=== PATIENT | male | born 1950 | race Hispanic/Latino ===

== ENCOUNTER 2019-05-14 11:39 | Inpatient (IN) | payer MEDICARE ==
[~2019-05-14] VITALS: Ht 162.6 cm; Wt 74.8 kg
--- OUTSIDE RECORDS SUMMARY | 2019-05-14 11:42 | XMS REPORT ---
Author Author [facility] Address Unknown Phone Unavailable Care Team Providers Care Vp Mobile Products Name Role Phone FIONA LATOSHA Unavailable Unavailable Problems This patient has no known problems. Allergies, Adverse Reactions, Alerts This patient has no known allergies or adverse reactions. Medications This patient has no known medications. Encounters Start Date/Time End Date/Time Encounter Type Admission Type Attending [facility] Care Facility Care Department Encounter ID 2016-05-02 10:03:00 2016-05-02 10:03:00 Outpatient 3 LATOSHA JAIMES [facility] [id number] Results Test Description Test Time Test Comments Text Results Atomic Results Result Comments WHOLE BLOOD GLUCOSE 2016-05-02 16:39:00 WHOLE BLOOD GLUCOSE (test code=POC GLU) 91 mg/dL 70-99 Fasting glucose normal <100 MG/DL- Citizen Of [place] [facility] recommendation WHOLE BLOOD [id number] 10:57:00* Test Item Value Reference Range Comments WHOLE BLOOD GLUCOSE (test code=POC GLU) 261 mg/dL 70-99 Fasting glucose normal <100 MG/DL- Citizen [facility] [place] [facility] recommendation
--- OUTSIDE RECORDS SUMMARY | 2019-05-14 11:42 | XMS REPORT | Continuity of Care Document ---
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 Medications No known medications. Problems No problem information available. Procedures Procedure Date Performed Status Minor level new patient office visit January 28, 2019 completed X-ray of wrist, three or more views January 28, 2019 completed Relevant Diagnostic Tests and/or Laboratory Data No known relevant diagnostic tests and/or laboratory data. Health Concerns Health Concerns may be documented in an alternate section. Advance Directives Advance Directive Response Recorded Date/Time Does the Patient have an Advance Directive? No January 28, 2019 4:32pm Encounters Encounter Location(s) Arrival/Admit Date Discharge[facility]Depart Date [facility]) [facility] January 28, 2019 4:33pm February 14, 2019 11:59pm LINDSEY PROCTOR MD Assessments No Assessments Information Available Functional Status No Functional Status information available Goals Goals may be documented in an alternate section. Immunizations No Immunization Information Available Mental Status No Mental Status Information Available Medical Equipment No Medical Equipment Information available Insurance Providers Guarantor Joy Wilkins Address [address] [facility] [address] Contact Info. Home Phone: Payer Policy Id Coverage Id Subscriber's Name Subscriber Id Effective Date Expiration Date Medicare [id number] Joy Wilkins [id number] 2014 Social History Assigned Sex Male Vital Signs No vital signs result information available.
[2019-05-14] MEDS ORDERED: VANCOMYCIN 1GM/NS 250 ML 250 ML IV STA (12:30)
[2019-05-14] MEDS ORDERED: PIPER-TAZ 3.375 GM 50 ML IV STA (12:30)
[2019-05-14] MEDS ORDERED: SODIUM CHLORIDE 0.9% 1000ML 1,000 ML IV SCH (12:36)
[2019-05-14] MEDS ORDERED: ONDANSETRON HCL INJ 2MG/ML 2ML 2 MG/ML VIAL IV PRN ×2 (12:45→23:30)
[2019-05-14 13:00] LABS: BASOPHILS % 0.3 % (0.0-1.0); EOSINOPHILS # (AUTO) 0.2 (0.0-0.4); EOSINOPHILS % 1.6 % (0.0-6.0); HEMATOCRIT 35.8 % (38.2-49.6); HEMOGLOBIN 11.3 g/dL (14.0-18.0); LYMPHOCYTES # (AUTO) 1.5 (1.0-3.2); LYMPHOCYTES % 14.8 % (18.0-39.1); MEAN CORPUSCULAR HEMOGLOBIN 25.4 pg (28-32); MEAN CORPUSCULAR HGB CONC 31.6 g/dL (31-35); MEAN CORPUSCULAR VOLUME 80.4 fL (81-99); MONOCYTES # (AUTO) 0.6 (0.2-0.8); MONOCYTES % 5.6 % (4.4-11.3); NEUTROPHILS # (AUTO) 7.7 (2.1-6.9); NEUTROPHILS % 76.6 % (38.7-80.0); PLATELET COUNT 437 x10e3/uL (140-360); RED BLOOD COUNT 4.45 x10e6/uL (4.3-5.7); RED CELL DISTRIBUTION WIDTH 15.3 % (11.7-14.4)
[2019-05-14 13:18] LABS: ALANINE AMINOTRANSFERASE 62 IU/L (0-55); ALBUMIN 2.6 g/dL (3.5-5.0); ALBUMIN/GLOBULIN RATIO 0.5 (0.8-2.0); ALKALINE PHOSPHATASE 129 IU/L (40-150); ANION GAP 12.7 mmol/L (8-16); BLOOD UREA NITROGEN 15 mg/dL (7-26); BUN/CREATININE RATIO 15 (6-25); CALCIUM 9.3 mg/dL (8.4-10.2); CARBON DIOXIDE 22 mmol/L (22-29); CHLORIDE 104 mmol/L (98-107); CREATINE KINASE 46 IU/L (30-200); CREATININE, SERUM 0.99 mg/dL (0.72-1.25); EST GLOMERULAR FILTRATION RATE > 60 ML/MIN (60-); GLUCOSE 218 mg/dL (74-118); POTASSIUM 3.7 mmol/L (3.5-5.1); SODIUM 135 mmol/L (136-145)
[2019-05-14] MEDS ORDERED: METOPROLOL SUCC50 MG PO (13:39)
[2019-05-14] MEDS ORDERED: PIOGLITAZONE HC45 MG PO (13:40)
[2019-05-14] MEDS ORDERED: ASPIR 8181 MG PO (13:40)
[2019-05-14] MEDS ORDERED: LISINOPRIL10 MG PO (13:41)
[2019-05-14] MEDS ORDERED: METFORMIN HCL500 MG PO (13:41)
[2019-05-14] MEDS ORDERED: FARXIGA10 MG PO (13:44)
[2019-05-14] MEDS ORDERED: CEPHALEXIN500 MG PO (13:44)
[2019-05-14] MEDS ORDERED: CLOPIDOGREL75 MG PO (13:45)
[2019-05-14] MEDS ORDERED: FLOMAX0.4 MG PO (13:46)
[2019-05-14] MEDS ORDERED: CRESTOR10 MG PO (13:46)
[2019-05-14] MEDS ORDERED: HUMULIN 70100 UNIT/1 SC/PO (13:47)
--- NOTE | 2019-05-14 14:08 | Diagnostic Imaging Report ---
TECHNIQUE: Frontal, oblique, and lateral views of the left foot. INDICATION: 68-year-old man with foot infection. COMPARISON: None. FINDINGS: Osseous erosion and increased lucency in the lateral aspect of the first distal phalanx. No acute fractures or dislocations. Joint spaces are within normal limits. Plantar calcaneal spur. Dorsal calcaneal enthesophyte. Vascular calcifications in the visualized soft tissues. IMPRESSION: Suspected osteomyelitis involving the left first distal phalanx. Signed by: Brooklynn Dodd MD on 05/14/2019 2:05 PM
--- NOTE | 2019-05-14 14:20 | NUR ---
PT TO THE FLOOR FROM ER. VITALS WNL. PT DENIES NEEDS AT THIS TIME.
[2019-05-14 15:30] VITALS: BP 159/69
[2019-05-14] MEDS: VANCOMYCIN 1GM/NS 250 ML 250 ML IV SCH (15:53)
[2019-05-14] MEDS: SODIUM CHLORIDE 0.9% 1000ML 1,000 ML IV SCH ×2 (16:01→22:57)
[2019-05-14 16:52] VITALS: BP 159/69
[2019-05-14] MEDS: ASPIRIN 81 MG CHEW TAB PO SCH (17:15)
--- NOTE | 2019-05-14 17:20 | Consultation ---
DATE OF CONSULTATION: REASON FOR CONSULTATION: Infection of the foot. HISTORY OF PRESENT ILLNESS: This patient, who is a very pleasant 68-year-old male, history of diabetes mellitus, history of neuropathy, who has been having infection with his foot for some time. He has been followed by Dr. Merrill, but the last few days, it has been getting progressively worse with redness and swelling. The left foot is getting progressively worse. Gangrenous changes noted. The patient came to the emergency room. He has been taking oral antibiotic without improvement. PAST MEDICAL HISTORY: Diabetes mellitus, neuropathy, and hypertension. PAST SURGICAL HISTORY: Denies. ALLERGIES: NKA. SOCIAL HISTORY: There is no smoking, drug abuse, or alcohol abuse. FAMILY HISTORY: Diabetes mellitus. REVIEW OF SYSTEMS: HEENT: Negative. PULMONARY: Negative. CARDIAC: Negative. GI: Negative. NEURO: No seizure activity. SKIN: There is no rash. HOME MEDICATIONS: He is on aspirin, cephalexin, lisinopril, metformin, and pravastatin. LABORATORY DATA: White count is 10.05 and hemoglobin 11.3. Sodium 135, potassium 3.7, and creatinine 0.99. His x-ray of the foot showed suspected osteomyelitis of the left 1st metatarsal. PHYSICAL EXAMINATION: GENERAL: He is currently alert and oriented. Does not seem to be in acute distress. VITAL SIGNS: Stable, currently afebrile. HEENT: He is not icteric. NECK: Supple. CHEST: Clear bilateral. HEART: S1 and S2. No S3, S4, or murmur. ABDOMEN: Soft. Bowel sounds present. No tenderness. EXTREMITIES: No edema. At the left foot, there is redness. There is swelling mainly around the side of the 1st, 2nd, and 3rd toe. At the 1st toe, there is some gangrenous tissue noted. The pulse is weak in the dorsalis pedis. IMPRESSION: Cellulitis and infection of the foot, concerned about gangrene, concerned about osteomyelitis. We will put on vancomycin and Zosyn. Vancomycin 1 g q.12. Obtain vancomycin trough. Zosyn 3.375 q.6 extended-release. Obtain sedimentation rate. Obtain C-reactive protein. Podiatry is consulted. Follow up CBC. Follow chemistry panel. We will follow up with vancomycin trough. Also, recommend vascular workup. Also, recommend an MRI. Discussed with the patient. Discussed with his daughter. The patient was seen in the emergency room. We will follow with you. MD MIMI Delgado/AELXIS /[id number]
[2019-05-14] MEDS ORDERED: PIPER-TAZ 3.375 GM 50 ML IV SCH (18:00)
--- NOTE | 2019-05-14 18:15 | Consultation ---
DATE OF CONSULTATION: 05/14/2019 Cardiology Consultation REASON FOR CONSULTATION: Foot wound. HISTORY OF PRESENT ILLNESS: Mr. Wilkins is a pleasant 68-year-old man with history of type 2 diabetes mellitus, hypertension, and dyslipidemia, who presents via the emergency department with left foot wound and associated erythema. Wound has been present for several months and is worsening. He reports a remote history of peripheral arterial disease revascularization of the left lower extremity at least 3 years ago. He denies any known cardiac history. REVIEW OF SYSTEMS: A 12-system review is negative except for as noted above. PAST MEDICAL HISTORY: As per HPI. ALLERGIES: NO KNOWN DRUG ALLERGIES. SOCIAL HISTORY: Denies active smoking, alcohol, or drugs. PHYSICAL EXAMINATION: VITAL SIGNS: Temperature 97.9, heart rate 61, respiratory rate 18, blood pressure 115/61, and O2 saturation 97%. GENERAL: In no acute distress. Alert. NECK: No JVD. CHEST: Clear to auscultation. CARDIOVASCULAR: Regular rate and rhythm. Normal S1 and S2. No S3. No S4. No murmurs. ABDOMEN: Soft. Bowel sounds positive. EXTREMITIES: No cyanosis or clubbing. Has left foot medial aspect of forefoot and plantar aspect of distal forefoot wounds with associated erythema. Dorsalis pedis pulses and posterior tibial pulses are nonpalpable. Capillary refill is slightly diminished. MEDICATIONS: Reviewed. Vancomycin and Zosyn. STUDIES: Reviewed. Sodium 135, potassium 3.7, chloride 104, bicarbonate 22, BUN 15, creatinine 0.99, and glucose 218. White blood cells 10, hemoglobin 11.3, and platelets 437. AST 49, ALT 62, total bilirubin 0.3, and alkaline phosphatase 129. ASSESSMENT AND PLAN: 1. A 68-year-old man presents with peripheral arterial disease, left foot wound, critical limb ischemia, Franky-Rosales classification stage 6 with associated 1st left distal phalanx osteomyelitis based on abnormal foot x-rays. 2. Diabetes mellitus. 3. Hypertension. 4. Dyslipidemia. 5. Mild anemia. RECOMMEND: 1. Initiate aspirin 81 mg daily. 2. Check lipid panel and initiate statin therapy. Monitoring transaminases as they are borderline elevated. AST 49 and ALT 62. 3. Serial cardiac biomarkers negative. 4. Order arterial Doppler for procedure planning. 5. Plan for peripheral angiography and possible revascularization. We will schedule for procedure tomorrow a.m. was confirming labor and delivery nurse availability. Indications, alternatives, risks, and benefits have been discussed with the patient, who voices understanding and wishes to proceed. MD DARCI Alvarez/ALEXIS /[id number]
[2019-05-14 20:00] VITALS: BP 157/73
[2019-05-14] MEDS: PIPER-TAZ 3.375 GM 50 ML IV SCH (22:56)
[2019-05-14 22:58] VITALS: BP 157/73
[2019-05-14] MEDS ORDERED: TEMAZEPAM 15 MG CAP PO PRN (23:30)
[2019-05-14] MEDS ORDERED: DEXTROSE 50% SYRINGE 50 ML IV PRN ×2 (23:30)
[2019-05-14] MEDS ORDERED: HYDRALAZINE HCL 20 MG/ML VIAL IV PRN (23:30)
[2019-05-14] MEDS ORDERED: ENOXAPARIN SOD INJ 40 MG/0.4 ML SYR SC ONE (23:30)
[2019-05-15] VITALS (12 sets, daily range): BP systolic 141–160; BP diastolic 66–86
--- NOTE | 2019-05-15 02:13 | Consultation ---
DATE OF CONSULTATION: 05/14/2019 REASON FOR CONSULTATION: Pregangrenous changes to the left lower extremity with a grade 3 to possibly 4 ulceration, medial plantar aspect of the left first MPJ with the patient being an insulin-dependent diabetic. HISTORY OF PRESENT ILLNESS: This is a pleasant 68-year-old male, who is known to me, who was seen last [place] for an ulceration debridement of the plantar aspect left great toe. The patient relates that 2 days following the debridement, he started getting worse and actually left AMA at [facility] to be admitted to [facility] for IV antibiotics and local wound care here at this hospital. He is currently denying any history of fever, chills, nausea, or vomiting, was having some chills several days ago. PAST MEDICAL HISTORY: Remarkable for hypercholesteremia, insulin-dependent diabetes, peripheral arterial disease. PAST SURGICAL HISTORY: Remarkable for right great toe amputation 4-5 years ago, angioplasty and possible angiogram several years ago to the left lower extremity. ALLERGIES: THE PATIENT DENIES. SOCIAL HISTORY: He is a krqo-mljhw-emt-day smoker, stopped drinking several years ago. No recreational drug use. Lives with his . FAMILY HISTORY: Remarkable for diabetes. REVIEW OF SYSTEMS: CARDIAC: Denies any palpitations or arrhythmias. RESPIRATORY: Denies any shortness of breath or productive cough. GASTROINTESTINAL: Denies any diarrhea or constipation. GENITOURINARY: Denies any problems of voiding or hematuria. LABORATORY DATA: Noted. White blood cell count 10.06, hemoglobin 11.3 with a platelet count of 437. PHYSICAL EXAMINATION: VITAL SIGNS: Temp afebrile, pulse rate 62, respirations 20, blood pressure 159/69, and O2 saturation 97%. Podiatric physical examination reveals the following: VASCULATURE: Pedal pulses of both the DP and PT are diminished bilaterally. SKIN: Temperature warm and cool to touch, specifically distally to the left foot when compared to the right. NEUROLOGICAL: Reveals some loss of protective sensation when utilizing Barron-Rachelle 5.07 monofilament wire. MUSCULOSKELETAL: Reveals muscle mass to be asymmetrical. Some swelling noted to the left lower extremity compared to the right. There is hair present up to his ankle joint area. Skin temperature is warm to touch up to the ankle area with decreasing skin temperature as we get to the toes, but still warm. DERMATOLOGICAL: Grade 3 ulceration, medial plantar aspect of left first metatarsophalangeal joint measuring 2 cm to 2.5 cm in diameter with some pregangrenous changes and cyanosis noted to the forefoot aspect of left foot. IMAGING DATA: X-rays were evaluated. No gas in the tissue. Does have calcification of vessels. Questionable for possible osteo, possibly to the distal phalanx and first metatarsal head. ASSESSMENT: Osteomyelitis, grade 3 ulcer with peripheral arterial disease with diabetic neuropathy. PLAN: Sharp excisional debridement will be planned for tomorrow morning of the ulceration and deep cultures will be taken. Dr. Michaels will be evaluating the patient for possible angiogram and angioplasty. We will continue IV antibiotics such as vancomycin and Zosyn as per Dr. Michel. The patient understands no warrantees or guarantees can be given. We will try to salvage foot and leg, but no guarantees can be given secondary to his poor circulatory status. LEOLA Wan/ALEXIS /[id number]
[2019-05-15] MEDS: INSULIN LISPRO 100 UNIT/1 ML 3ML VIAL SQ SCH ×5 (02:35→20:00)
[2019-05-15] MEDS: INSULIN GLARGINE 100 UNITS/ML VIAL SQ SCH ×2 (02:35→20:00)
[2019-05-15] MEDS: SIMVASTATIN 20 MG TAB PO SCH ×2 (02:50→22:00)
[2019-05-15] MEDS: PIPER-TAZ 3.375 GM 50 ML IV SCH ×4 (02:50→21:57)
[2019-05-15] MEDS: METOPROLOL SUCCINATE 50 MG TAB XL PO SCH ×2 (02:50→22:01)
[2019-05-15] MEDS: VANCOMYCIN 1GM/NS 250 ML 250 ML IV SCH ×2 (04:06→15:30)
[2019-05-15 06:17] LABS: BASOPHILS % 0.3 % (0.0-1.0); EOSINOPHILS # (AUTO) 0.3 (0.0-0.4); EOSINOPHILS % 3.2 % (0.0-6.0); HEMATOCRIT 34.3 % (38.2-49.6); HEMOGLOBIN 10.6 g/dL (14.0-18.0); LYMPHOCYTES # (AUTO) 1.8 (1.0-3.2); MEAN CORPUSCULAR HEMOGLOBIN 24.8 pg (28-32); MEAN CORPUSCULAR HGB CONC 30.9 g/dL (31-35); MEAN CORPUSCULAR VOLUME 80.3 fL (81-99); MONOCYTES # (AUTO) 0.8 (0.2-0.8); MONOCYTES % 7.5 % (4.4-11.3); NEUTROPHILS % 70.3 % (38.7-80.0); PLATELET COUNT 420 x10e3/uL (140-360); RED BLOOD COUNT 4.27 x10e6/uL (4.3-5.7); RED CELL DISTRIBUTION WIDTH 15.3 % (11.7-14.4)
[2019-05-15 06:30] LABS: INR 1.18; PROTHROMBIN TIME 15.8 seconds (11.9-14.5)
[2019-05-15 06:31] LABS: PARTIAL THROMBOPLASTIN TIME 45.6 seconds (23.8-35.5)
[2019-05-15 06:41] LABS: ANION GAP 12.8 mmol/L (8-16); BLOOD UREA NITROGEN 12 mg/dL (7-26); BUN/CREATININE RATIO 15 (6-25); CALCIUM 9.2 mg/dL (8.4-10.2); CARBON DIOXIDE 21 mmol/L (22-29); CHLORIDE 108 mmol/L (98-107); CREATININE, SERUM 0.82 mg/dL (0.72-1.25); EST GLOMERULAR FILTRATION RATE > 60 ML/MIN (60-); GLUCOSE 141 mg/dL (74-118); POTASSIUM 3.8 mmol/L (3.5-5.1); SODIUM 138 mmol/L (136-145)
[2019-05-15] MEDS ORDERED: INSULIN REGULAR, HUMAN 100 UNIT/1 ML 3ML VIAL SQ SCH (07:30)
[2019-05-15] MEDS ORDERED: MIDAZOLAM HCL 2 MG/2 ML VIAL ONE (08:28)
[2019-05-15] MEDS ORDERED: FENTANYL CITRATE/PF 100MCG/2 ML INJ ONE (08:29)
[2019-05-15] MEDS ORDERED: LIDOCAINE HCL 2% LOCAL 20 ML VIAL ONE (08:30)
[2019-05-15] MEDS ORDERED: HEPARIN SOD/SOD CHLORIDE 2,000 ML ONE (08:30)
[2019-05-15] MEDS ORDERED: SODIUM CHLORIDE 0.9% 1000ML 0 ML ONE (08:31)
[2019-05-15] MEDS ORDERED: IOPAMIDOL 300MG/ML 100 ML INFUS..BTL IV ONE (08:31)
--- NOTE | 2019-05-15 08:40 | NUR ---
at bedside doing debridement
[2019-05-15] MEDS: MORPHINE SULFATE 2 MG/ML SYR 1ML IV PRN (08:50)
[2019-05-15] MEDS ORDERED: ATORVASTATIN 20 MG TAB PO SCH (09:00)
[2019-05-15] MEDS: SENNOSIDES 8.6 MG TAB PO SCH ×2 (09:00→16:38)
[2019-05-15] MEDS ORDERED: VERAPAMIL HCL 2.5 MG/ML 2 ML VIAL ONE (09:58)
[2019-05-15] MEDS ORDERED: SODIUM CHLORIDE 0.9% 1000ML 1,000 ML ONE (09:58)
--- NOTE | 2019-05-15 10:45 | NUR ---
Back from procedure. AAOX4 to time, person, place, situation. Respirations even and unlabored. Dressing to right groin clean, dry, and intact. Notified of bedrest orders. Voiced understanding.
[2019-05-15] MEDS: ASPIRIN 81 MG CHEW TAB PO SCH (11:51)
[2019-05-15] MEDS: ATORVASTATIN 40 MG TAB PO SCH (11:51)
[2019-05-15] MEDS ORDERED: GADOBENATE DIMEGLUMINE 1 ML IV ONE (14:34)
--- NOTE | 2019-05-15 15:20 | Progress Note ---
DATE: 05/15/2019 SUBJECTIVE: The patient at bedside accompanied by daughter, having some discomfort to the left lower extremity. Denies any history of fever, chills, nausea, or vomiting. OBJECTIVE: VITAL SIGNS: Afebrile, pulse rate 56, respirations 18, blood pressure 144/86, and O2 saturation 94%. LABORATORY DATA: Show white blood cell count 10.0, hemoglobin 10.6 with a platelet count of 420. Ulceration and cellulitis of the left foot are getting a little bit worse. Pedal pulses are diminished. Skin temperature warm and cool to touch, has a grade 3/4 ulceration plantar aspect 1st metatarsophalangeal joint measuring 2 to 2.5 cm in diameter with an ulceration, plantar aspect left great toe, 1 cm in diameter. ASSESSMENT: Diabetic neuropathy with a grade 4 ulcer and possible osteo. PLAN: Under no anesthesia secondary to his neuropathy, sharp excisional debridement of the ulcer was carried down to bone. Devitalized tissue sharply excised until some viable bleeding tissue was achieved. Deep cultures were taken for aerobic and anaerobic growth. We will start Santyl followed by diluted wet-to-dry Betadine to the ulceration site. Deep cultures were taken for aerobic and anaerobic growth. X-rays of the left foot will be taken three views. The patient is scheduled for angiogram, possible angioplasty per Dr. Michaels. We will continue to treat conservatively for now, try to salvage the foot. After the debridement the ulcer measured at least 2 x 4 cm in diameter, plantar aspect, 1st metatarsal head. LEOLA Wan/ALEXIS /[id number]
--- NOTE | 2019-05-15 16:02 | Diagnostic Imaging Report ---
EXAMINATION: FOOT LEFT COMPLETE INDICATION: Cellulitis COMPARISON: None FINDINGS: No acute fracture or dislocation. Focal osteopenia and mild cortical thinning at the lateral aspect of the great toe distal phalanx. Alignment appears anatomic. Mild scattered degenerative changes. Achilles enthesopathy and small plantar calcaneal spur. Mild plantar foot soft tissue swelling. Scattered atherosclerotic arterial calcifications. IMPRESSION: No acute osseous injury. Focal osteopenia and cortical thinning at the lateral aspect of the great toe distal phalanx, concerning for osteomyelitis. Plantar soft tissue thickening consistent with cellulitis. Signed by: Medardo Adams MD on 05/15/2019 4:00 PM
[2019-05-15] MEDS: TAMSULOSIN HCL 0.4 MG CAP PO SCH (16:38)
--- NOTE | 2019-05-15 18:36 | Operative Report ---
DATE OF PROCEDURE: 05/15/2019 SURGEON: Colton Soares MD STUDY: Peripheral angiography and intervention. PROCEDURE INDICATION: Critical limb ischemia with left foot wound and known remote history of PAD revascularization. PROCEDURE PERFORMED: 1. Abdominal aortogram. 2. Selective lower extremity angiography, bilateral. 3. Third-order catheter placement from right femoral artery to left femoral artery. 4. Additional third-order catheter placement from right femoral artery to left popliteal artery. 5. Additional third-order catheter placement from right femoral artery to left posterior tibial artery. 6. Additional third-order catheter placement from left femoral artery to left dorsalis pedis artery. 7. Right LABOR UNION BUSINESS REPRESENTATIVE attempt and aborted LABOR UNION BUSINESS REPRESENTATIVE. PROCEDURE COMPLICATIONS: None. ESTIMATED BLOOD LOSS: Less than 15 mL. PROCEDURE SUMMARY: After consent was obtained, the patient was prepped and draped in a sterile fashion. The right femoral site local infiltrated with 2% lidocaine with micropuncture kit. Access was obtained and a 6-Indonesian sheath was placed. A sheath was advanced over leading wire 6-Indonesian in size. An Omni Flush catheter was positioned in distal descending abdominal aorta and angiography was performed revealing patent renal arteries and luminal irregularities across the infrarenal aorta and iliac vessels as well as common femoral vessels. Additional selective angiography was performed to each of both lower extremities with catheter positioned in the right femoral artery, right external iliac artery, left popliteal artery, left anterior tibial artery, left posterior tibial artery, and left femoral artery. After initial imaging, it was decided to proceed with attended intervention to right posterior tibial artery with Roadrunner wire. The wire was advanced to the mid to distal segment of the right posterior tibial, however, in spite of this additional pictures to assess for residual outflow, the posterior tibial poor outflow was noted with predominantly only collaterals filling the distal segment without adequate reconstitution of posterior tibial and plantar arteries and plantar branches. It was therefore decided to abort further LABOR UNION BUSINESS REPRESENTATIVE attempts. Angio-Seal was deployed to the right common femoral artery at the end of the procedure. A selective angiography to the internal inguinal segment was significant for luminal irregularities to common femoral profunda femoris and SFA. The right popliteal artery distally has an area of 80% stenosis and the right posterior tibial was occluded proximally, seems to reconstitute to the mid segment. The right anterior tibial and peroneal artery are patent in the proximal to mid segment. Distal segment was not well visualized. The left jumxa-oia-insh vessels are significant for a right posterior tibial mid to distal occlusion 100% and the patent anterior tibial and peroneal artery on the left with the left dorsalis pedis artery area of 80% stenosis in a small caliber segment of the mid left dorsalis pedis. It was felt, given severe small vessel outflow, diabetic foot disease and underlying small caliber diffusely diseased with focal area of stenosis dorsalis pedis that single residual vessel for supply to left foot, medical management was almost optimal for left foot PAD. The right popliteal artery can undergo revascularization via endovascular approach at a later date. MD DARCI Alvarez/MODL /[id number]
--- NOTE | 2019-05-15 19:41 | NUR ---
Report given to oncoming nurse of patient's status. Resting in bed. No s/s of acute distress noted. Dressing to right groin clean, dry, and intact. Dressing to left foot clean, dry, and intact. Side rails upx2, call light within reach, bed alarm on, at bedside.
[2019-05-15] MEDS ORDERED: INSULIN ASPART 70/30 100 UNITS/ML VIAL SC SCH (21:00)
[2019-05-16] VITALS (13 sets, daily range): BP systolic 142–158; BP diastolic 59–73
[2019-05-16] MEDS: PIPER-TAZ 3.375 GM 50 ML IV SCH ×4 (02:35→21:25)
[2019-05-16] MEDS: VANCOMYCIN 1GM/NS 250 ML 250 ML IV SCH ×2 (04:59→16:56)
[2019-05-16] MEDS: INSULIN LISPRO 100 UNIT/1 ML 3ML VIAL SQ SCH ×4 (07:30→21:25)
[2019-05-16] MEDS: ASPIRIN 81 MG CHEW TAB PO SCH (09:04)
[2019-05-16] MEDS: ATORVASTATIN 40 MG TAB PO SCH (09:04)
[2019-05-16] MEDS: SENNOSIDES 8.6 MG TAB PO SCH ×2 (09:05→16:19)
[2019-05-16] MEDS: TAMSULOSIN HCL 0.4 MG CAP PO SCH (16:19)
[2019-05-16] MEDS: ENOXAPARIN SOD INJ 40 MG/0.4 ML SYR SC SCH (16:20)
--- NOTE | 2019-05-16 19:37 | NUR ---
walking rounds complete, report handed to oncoming nurse.
--- NOTE | 2019-05-16 21:21 | Progress Note ---
DATE: Cardiology Progress Note SUBJECTIVE: No complaints today. Left foot pain is improved. OBJECTIVE: VITAL SIGNS: Temperature 97.1, heart rate 55, blood pressure 142/73, respiratory rate 20, and O2 saturation 96%. GENERAL: In no acute distress, alert. NECK: No JVD. No carotid bruits. CHEST: Clear to auscultation. CARDIOVASCULAR: Regular rate and rhythm. Normal S1 and S2. No S3 or S4. ABDOMEN: Soft. Bowel sounds positive. EXTREMITIES: Left foot wound covered with dressings. Abnormal dorsalis pedis and posterior tibial pulses bilaterally. MEDICATIONS: Cardiovascular medications have been reviewed, on aspirin 81 mg daily, atorvastatin 20 mg at bedtime, Lovenox 40 mg subcu daily, clopidogrel 75 mg daily, Zosyn, and vancomycin antibiotics. LABORATORY DATA: Studies reviewed, creatinine is 0.8, hemoglobin 10.6, and platelets 420. ASSESSMENT AND PLAN: 1. 68-year-old man with peripheral arterial disease, presenting with left foot cellulitis and osteomyelitis in the setting of underlying severe outflow disease to the left foot and also noted to have severe stenosis to the right popliteal artery for which staged intervention is planned at a later date. 2. Continue rest of cardiovascular medications, particular care for antibiotic and wound care per Podiatry expertise. Colton Soares MD AFV/MODL /[id number]
[2019-05-16] MEDS: INSULIN GLARGINE 100 UNITS/ML VIAL SQ SCH (21:26)
[2019-05-16] MEDS: SIMVASTATIN 20 MG TAB PO SCH (21:27)
[2019-05-16] MEDS: METOPROLOL SUCCINATE 50 MG TAB XL PO SCH (21:27)
--- NOTE | 2019-05-16 21:42 | Consultation ---
DATE OF CONSULTATION: 05/16/2019 SUBJECTIVE: The patient is seen at bedside, doing somewhat better. Decreased pain to the left lower extremity. Denies any history of fever, chills, nausea, or vomiting. OBJECTIVE: VITAL SIGNS: Afebrile, pulse rate 59, respirations 20, blood pressure 144/59, and O2 saturation 97%. Skin temperature warm to touch. There is still some drainage. The ulcer is approximately 2 x 4 cm in diameter with cellulitis surrounding the first MPJ. Pedal pulses diminished. LABORATORY DATA: Noted, white blood cell count of 10.0, hemoglobin 10.6 with a platelet count of 420. Has a blood glucose of 184. INR of 1.18. Ulceration to the left lower extremity looking somewhat better. ASSESSMENT: Peripheral arterial disease with a grade 4 ulcer, possible osteomyelitis left foot. PLAN: We will continue local wound care. We will again debride the ulceration tomorrow at bedside to try for any type of amputation. We will continue IV antibiotics, continue Bactroban followed by diluted wet-to-dry Betadine. We will continue to follow. LEOLA Wan/ALEXIS /[id number]
[2019-05-17] VITALS (10 sets, daily range): BP systolic 119–155; BP diastolic 58–78
[2019-05-17] MEDS: PIPER-TAZ 3.375 GM 50 ML IV SCH ×4 (01:38→21:18)
[2019-05-17] MEDS: VANCOMYCIN 1GM/NS 250 ML 250 ML IV SCH ×2 (03:00→15:00)
[2019-05-17 06:21] LABS: BASOPHILS % 0.2 % (0.0-1.0); EOSINOPHILS # (AUTO) 0.4 (0.0-0.4); EOSINOPHILS % 3.9 % (0.0-6.0); HEMATOCRIT 33.6 % (38.2-49.6); HEMOGLOBIN 10.4 g/dL (14.0-18.0); LYMPHOCYTES % 21.1 % (18.0-39.1); MEAN CORPUSCULAR HEMOGLOBIN 24.6 pg (28-32); MEAN CORPUSCULAR VOLUME 79.6 fL (81-99); MONOCYTES # (AUTO) 0.7 (0.2-0.8); MONOCYTES % 7.3 % (4.4-11.3); NEUTROPHILS # (AUTO) 6.4 (2.1-6.9); NEUTROPHILS % 66.8 % (38.7-80.0); PLATELET COUNT 440 x10e3/uL (140-360); RED BLOOD COUNT 4.22 x10e6/uL (4.3-5.7); RED CELL DISTRIBUTION WIDTH 15.5 % (11.7-14.4)
[2019-05-17 06:40] LABS: ANION GAP 12.6 mmol/L (8-16); BLOOD UREA NITROGEN 9 mg/dL (7-26); BUN/CREATININE RATIO 12 (6-25); CALCIUM 9.3 mg/dL (8.4-10.2); CARBON DIOXIDE 21 mmol/L (22-29); CHLORIDE 108 mmol/L (98-107); CREATININE, SERUM 0.75 mg/dL (0.72-1.25); EST GLOMERULAR FILTRATION RATE > 60 ML/MIN (60-); GLUCOSE 128 mg/dL (74-118); POTASSIUM 3.6 mmol/L (3.5-5.1); SODIUM 138 mmol/L (136-145)
[2019-05-17] MEDS: INSULIN LISPRO 100 UNIT/1 ML 3ML VIAL SQ SCH ×4 (07:30→21:28)
--- NOTE | 2019-05-17 08:38 | Diagnostic Imaging Report ---
TECHNIQUE: Magnetic resonance imaging of the LEFT foot was performed without and with injected contrast. 15 cc of MultiHance. HISTORY: Pain COMPARISON: Foot radiograph May 14, 2019 DISCUSSION: Soft tissue ulceration of the medial forefoot with sinus tract identified soft tissue phlegmon/abscess along the medial plantar forefoot under the phalanges, first metatarsal head, and sesamoids. Bone marrow edema with T1 replacement involving the phalanges, first metatarsal head, and sesamoids. The remainder of the bone marrow signal is normal. IMPRESSION: Soft tissue ulceration with phlegmon/abscess medial plantar forefoot with osteomyelitis of the phalanges, metatarsal head, and sesamoids of the hallux. Signed by: Dr. Girma Parrish M.D. on 05/17/2019 8:35 AM
[2019-05-17] MEDS: ASPIRIN 81 MG CHEW TAB PO SCH ×2 (09:00→09:24)
[2019-05-17] MEDS: CLOPIDOGREL BISULFATE 75 MG TAB PO SCH ×2 (09:24→09:25)
[2019-05-17] MEDS: SENNOSIDES 8.6 MG TAB PO SCH ×2 (09:24→17:00)
[2019-05-17] MEDS: ATORVASTATIN 40 MG TAB PO SCH (09:24)
--- NOTE | 2019-05-17 13:55 | NUR ---
see NOTE [id number]
--- NOTE | 2019-05-17 13:59 | Progress Note ---
DATE: Cardiology Progress Note SUBJECTIVE: No new complaints. OBJECTIVE: VITAL SIGNS: Temperature 96.7, heart rate 56, blood pressure 144/86, respiratory rate 18, O2 saturation 94%. GENERAL: In no acute distress. Alert. NECK: No JVD. CHEST: Clear to auscultation. CARDIOVASCULAR: Regular rate and rhythm. Normal S1, S2. ABDOMEN: Soft. Bowel sounds positive. EXTREMITIES: No edema. Left foot with wound. CARDIOVASCULAR MEDICATIONS: Reviewed. Atorvastatin, tamsulosin, aspirin, and metoprolol. LABORATORY DATA: Potassium 3.8, creatinine 0.8, hemoglobin 10.6 platelets 420. AST 49, ALT 62. ASSESSMENT AND PLAN: A 68-year-old man presents with left foot wound, critical limb ischemia, peripheral arterial disease. Arterial Dopplers reviewed significant for left bhqwa-vkb-evds vessel outflow disease and right femoral-popliteal severe stenosis. Recommend continue medications and proceed with angiography and possible intervention to the left lower extremity today for limb salvage. MD DARCI Alvarez/KENNETHL /[id number]
[2019-05-17] MEDS: MORPHINE SULFATE 2 MG/ML SYR 1ML IV PRN (14:09)
--- NOTE | 2019-05-17 14:44 | Progress Note ---
DATE: 05/17/2019 SUBJECTIVE: The patient is seen at bedside, accompanied by family member including daughter and spouse, having some discomfort to the left lower extremity, but denying history of fever, chills, nausea, or vomiting, feeling better. OBJECTIVE: VITAL SIGNS: Afebrile, pulse rate 56, respirations 18, blood pressure 134/74, O2 saturation 98%. LABORATORY DATA: Labs show white blood cell count of 9.5, hemoglobin 10.4 with a platelet count of 440. INR of 1.18. Ulceration to the left lower extremity is looking a little bit better, still down to bone, measuring 2 x 4 cm in diameter with multiple ulcerations surrounding the main ulcer measuring less than 1 cm in diameter, also down to muscle and bone. There is minimal foul smell, some drainage noted. Skin temperature to all toes are warm today and CFT to all toes less than 4 seconds. ASSESSMENT: Grade 4 ulcer with possible osteomyelitis with peripheral arterial disease and diabetic neuropathy. PLAN: Sharp excisional debridement was carried down to bone. Devitalized tissue sharply excised until good viable bleeding tissue was achieved via the use of a sterile 10 blade. The bone was scraped utilizing a sterile 10 blade until good viable bleeding tissue achieved. Following the debridement, the ulcer measured 2 x 4.5 to 5 cm in diameter. Sterile dressing was applied with Bactroban followed by diluted wet-to-dry Betadine. We will continue IV antibiotics. We will continue to treat the patient conservatively. The patient seemed to be responding to IV antibiotics and local wound care with serial debridements to try to avoid any type of amputation. LEOLA Wan/KENNETHL /[id number]
[2019-05-17] MEDS: ENOXAPARIN SOD INJ 40 MG/0.4 ML SYR SC SCH (17:00)
[2019-05-17] MEDS: TAMSULOSIN HCL 0.4 MG CAP PO SCH (17:00)
--- NOTE | 2019-05-17 18:50 | NUR ---
Visit made by the Spiritual Care Department Pastoral Visitor, Geovanni Rojas. PV provided pastoral presence, communion, hospitality, and supportive listening. Pastoral Visitor informed pt/family of the scope of [facility] and availability. MANJULA CLARK Machine [employer] Spiritual Care Department O: [phone]
--- NOTE | 2019-05-17 19:25 | NUR ---
walking rounds complete, report handed to oncoming nurse.
[2019-05-17] MEDS ORDERED: SODIUM CHLORIDE 0.9% 250ML 250 ML ONE (20:27)
[2019-05-17] MEDS: SIMVASTATIN 20 MG TAB PO SCH (21:18)
[2019-05-17] MEDS: METOPROLOL SUCCINATE 50 MG TAB XL PO SCH (21:18)
[2019-05-17] MEDS: INSULIN GLARGINE 100 UNITS/ML VIAL SQ SCH (21:31)
--- NOTE | 2019-05-17 22:34 | NUR ---
Call from Dr Michaels, new order to d/c simivastatin.
--- NOTE | 2019-05-17 23:57 | Progress Note ---
DATE: 05/17/2019 SUBJECTIVE: No complaints. OBJECTIVE: VITAL SIGNS: Temperature 98.3, heart rate 60, blood pressure 136/77, respiratory rate 20, and O2 saturation 94%. GENERAL: In no acute distress and alert. NECK: No JVD. CHEST: Clear to auscultation. CARDIOVASCULAR: Regular rate and rhythm. Normal S1 and S2. No S3 or S4. ABDOMEN: Soft. Bowel sounds positive. EXTREMITIES: No edema. Left foot wound covered with dressings. CARDIOVASCULAR MEDICATIONS: Reviewed. Metoprolol succinate 50 mg at bedtime, aspirin 81 mg daily, atorvastatin 40 mg at bedtime, and clopidogrel 75 mg daily. STUDIES: Reviewed. Creatinine 0.7, hemoglobin 10.4, and platelets 440. ASSESSMENT AND PLAN: A 68-year-old man presents with: 1. Peripheral arterial disease, left foot wound with osteomyelitis and cellulitis. 2. Diabetes mellitus. 3. Hypertension. 4. Dyslipidemia. RECOMMEND: Continue current cardiovascular medications. Discontinue simvastatin. MD DARCI Alvarez/KENNETHL /[id number]
[2019-05-18] VITALS (8 sets, daily range): BP systolic 114–145; BP diastolic 62–76
[2019-05-18] MEDS: PIPER-TAZ 3.375 GM 50 ML IV SCH ×2 (02:30→08:19)
[2019-05-18] MEDS: VANCOMYCIN 1GM/NS 250 ML 250 ML IV SCH (03:32)
[2019-05-18] MEDS: INSULIN LISPRO 100 UNIT/1 ML 3ML VIAL SQ SCH ×4 (07:30→20:20)
--- NOTE | 2019-05-18 07:30 | NUR ---
PATIENT IS AWAKE, ALERT, AND IN STABLE CONDITION WITH NO S/S OF RESPIRATORY DISTRESS. PATIENT DENIES PAIN. DRESSING TO LEFT FOOT IS CLEAN, DRY, AND INTACT. PRESENT IN ROOM. CALL LIGHT IS WITHIN REACH, PATIENT INSTRUCTED TO CALL FOR ASSISTANCE NEEDED.
[2019-05-18] MEDS: ATORVASTATIN 40 MG TAB PO SCH (08:21)
[2019-05-18] MEDS: ASPIRIN 81 MG CHEW TAB PO SCH ×2 (08:21)
[2019-05-18] MEDS: SENNOSIDES 8.6 MG TAB PO SCH ×2 (08:21→16:00)
[2019-05-18] MEDS: CLOPIDOGREL BISULFATE 75 MG TAB PO SCH (08:21)
[2019-05-18] MEDS ORDERED: MUPIROCIN 2% OINT 22 GM TUBE TOP SCH (09:00)
--- NOTE | 2019-05-18 09:19 | NUR ---
DR. LAWRENCE ON THE UNIT- DRESSING CHANGE COMPLETED FOR PATIENT. DRESSING IS CLEAN, DRY, AND INTACT. PATIENT REQUESTING PAIN MEDICATION AT THIS TIME.
[2019-05-18] MEDS: ACETAMINOPHEN 325 MG TAB PO PRN (09:29)
[2019-05-18] MEDS ORDERED: TIMOLOL MALEATE5 M2 OP (11:05)
[2019-05-18] MEDS ORDERED: LATANOPROST2.5 ML OP (11:05)
--- NOTE | 2019-05-18 12:18 | Progress Note ---
DATE: 05/18/2019 Cardiology Progress Note SUBJECTIVE: Denies any chest pain or shortness of breath. Foot pain controlled. OBJECTIVE: VITAL SIGNS: Temperature 96.6, heart rate 56, respiratory rate 20, blood pressure 138/75, and O2 saturation 95% on room air. GENERAL: In no acute distress, alert. NECK: No JVD. CHEST: Clear to auscultation. CARDIOVASCULAR: Regular rate and rhythm. Normal S1, S2. ABDOMEN: Soft. Bowel sounds positive. EXTREMITIES: No edema. Left foot wound covered with dressings. CARDIOVASCULAR MEDICATIONS: Reviewed. Clopidogrel 75 mg daily, atorvastatin 40 mg at bedtime, aspirin 81 mg daily, vancomycin, Zosyn, metoprolol succinate 50 mg at bedtime, and tamsulosin 0.4 mg daily. LABORATORY STUDIES: Reviewed, white blood cells 9.5, hemoglobin 10.4, and platelets 240. Sodium 138, potassium 3.6, chloride 108, bicarbonate 21, BUN 9, creatinine 0.7, glucose 128, and calcium 9.3. ASSESSMENT: 1. Peripheral arterial disease with left foot cellulitis and osteomyelitis, undergoing antibiotic therapy and wound care. 2. Diabetes mellitus. 3. Hypertension. 4. Dyslipidemia. RECOMMENDATIONS: 1. Continue current cardiovascular medications. 2. Outpatient followup for staged right lower extremity revascularization. Colton Soares MD AFKatlyn/KENNETHL /[id number]
[2019-05-18] MEDS: CEFAZOLIN SOD 1 GM/NS 50ML 50 ML IV SCH ×2 (13:38→21:01)
--- NOTE | 2019-05-18 14:44 | Progress Note ---
DATE: 05/17/2019 SUBJECTIVE: Mr. Wilkins is lying in bed comfortably. There are no new complaints. This patient, who is a 68-year-old male, history of diabetes mellitus, hypertension, hyperlipidemia, comes in with left foot infection, osteomyelitis and cellulitis. The patient is currently lying in bed comfortably. REVIEW OF SYSTEMS: HEENT: Negative. PULMONARY: Negative. CARDIAC: Negative. PHYSICAL EXAMINATION: GENERAL: He is currently alert, oriented, does not seem to be in acute distress. VITAL SIGNS: Stable, currently afebrile. HEENT: Not icteric. NECK: Supple. CHEST: Clear. HEART: S1, S2. No S3, S4, or murmur. ABDOMEN: Soft. Bowel sounds present. No tenderness. EXTREMITIES: No edema. SKIN: No rash of the foot. He was seen by Dr. Merrill, underwent sharp debridement at the bedside. IMPRESSION: 1. Left foot osteomyelitis. 2. Stage 4 ulcer. 3. Peripheral vascular disease. 4. Diabetes mellitus with neuropathy. He would need an extended course of IV antibiotic as ordered. He is currently on cefazolin since he grew Staphylococcus aureus MSSA. Plan on six weeks of IV antibiotic. Weekly CBC, weekly Chem panel. We will follow. MD MIMI Delgado/ALEXIS /[id number]
[2019-05-18] MEDS: MORPHINE SULFATE 2 MG/ML SYR 1ML IV PRN (15:56)
[2019-05-18] MEDS: TAMSULOSIN HCL 0.4 MG CAP PO SCH (16:00)
[2019-05-18] MEDS: ENOXAPARIN SOD INJ 40 MG/0.4 ML SYR SC SCH (16:00)
--- NOTE | 2019-05-18 17:31 | Progress Note ---
DATE: 05/18/2019 SUBJECTIVE: The patient at bedside, accompanied by spouse. Still having some discomfort to the left lower extremity, but denies any history of fever, chills, nausea, or vomiting. OBJECTIVE: VITAL SIGNS: Afebrile, pulse rate 56, respirations 20, blood pressure 138/75, O2 saturation 95%. LABORATORY DATA: Labs show white blood cell count of 9.5, ulcerations, still tracking to bone 2 x 4.5 cm left foot, some drainage, but negative foul smell. Wound culture came back for Staph aureus sensitive to vancomycin and Zosyn. ASSESSMENT: 1. Grade 4 ulcer. 2. Osteomyelitis of left foot. 3. Peripheral arterial disease with diabetic neuropathy. PLAN: We will continue local wound care. Continue IV antibiotics for at least till Saturday before his discharge depending on improvement of ulceration. LEOLA Wan/ALEXIS /[id number]
--- NOTE | 2019-05-18 19:23 | NUR ---
PATIENT IN STABLE CONDITION WITH NO S/S OF RESPIRATORY DISTRESS. PATIENT DENIES PAIN. PRESENT IN ROOM. DRESSING TO LEFT FOOT IS CLEAN, DRY, AND INTACT. CALL LIGHT IS WITHIN REACH, PATIENT INSTRUCTED TO CALL FOR ASSISTANCE NEEDED. BEDSIDE SHIFT REPORT GIVEN TO ONCOMING NURSE.
--- NOTE | 2019-05-18 20:13 | NUR ---
Dressing to Left foot changed per MD orders, patient tolerated well. Will continue to monitor.
[2019-05-18] MEDS: METOPROLOL SUCCINATE 50 MG TAB XL PO SCH (20:18)
[2019-05-18] MEDS: LATANOPROST(OPTH) 2.5 ML BTL OP SCH (20:19)
[2019-05-18] MEDS: INSULIN GLARGINE 100 UNITS/ML VIAL SQ SCH (20:22)
[2019-05-19] VITALS (9 sets, daily range): BP systolic 98–151; BP diastolic 63–85
[2019-05-19 05:21] LABS: BASOPHILS % 0.3 % (0.0-1.0); EOSINOPHILS # (AUTO) 0.4 (0.0-0.4); EOSINOPHILS % 4.2 % (0.0-6.0); HEMATOCRIT 34.3 % (38.2-49.6); HEMOGLOBIN 10.6 g/dL (14.0-18.0); LYMPHOCYTES % 21.5 % (18.0-39.1); MEAN CORPUSCULAR HEMOGLOBIN 24.8 pg (28-32); MEAN CORPUSCULAR HGB CONC 30.9 g/dL (31-35); MEAN CORPUSCULAR VOLUME 80.1 fL (81-99); MONOCYTES # (AUTO) 0.7 (0.2-0.8); MONOCYTES % 7.4 % (4.4-11.3); NEUTROPHILS # (AUTO) 6.2 (2.1-6.9); NEUTROPHILS % 66.3 % (38.7-80.0); PLATELET COUNT 453 x10e3/uL (140-360); RED BLOOD COUNT 4.28 x10e6/uL (4.3-5.7); RED CELL DISTRIBUTION WIDTH 15.7 % (11.7-14.4)
[2019-05-19] MEDS: CEFAZOLIN SOD 1 GM/NS 50ML 50 ML IV SCH ×3 (06:07→21:49)
--- NOTE | 2019-05-19 07:03 | NUR ---
Bedside report and rounds completed with oncoming nurse. Patient in bed with call light within reach. No issues or concerns noted.
[2019-05-19] MEDS: INSULIN LISPRO 100 UNIT/1 ML 3ML VIAL SQ SCH ×4 (07:30→21:49)
[2019-05-19] MEDS: CLOPIDOGREL BISULFATE 75 MG TAB PO SCH (08:36)
[2019-05-19] MEDS: ATORVASTATIN 40 MG TAB PO SCH (08:36)
[2019-05-19] MEDS: SENNOSIDES 8.6 MG TAB PO SCH ×2 (08:36→16:28)
[2019-05-19] MEDS: ASPIRIN 81 MG CHEW TAB PO SCH ×2 (08:36→08:37)
[2019-05-19] MEDS: TIMOLOL MALEATE 0.25% OPTHLAMIC DROPS 5 ML OP SCH ×2 (08:41→16:28)
--- NOTE | 2019-05-19 11:01 | Progress Note ---
DATE: 05/19/2019 Cardiology Progress Note SUBJECTIVE: Denies chest pain or shortness of breath. No new complaints. OBJECTIVE: VITAL SIGNS: Temperature 97.2, heart rate 57, blood pressure 151/85, respiratory rate 19, O2 saturation 96%. GENERAL: No acute distress, alert. NECK: No JVD. CHEST: Clear to auscultation. CARDIOVASCULAR: Regular rate and rhythm. Normal S1, S2. No S3 or S4. ABDOMEN: Soft. Bowel sounds positive. EXTREMITIES: No edema. Left foot wound covered with dressings. CARDIOVASCULAR MEDICATIONS: Reviewed. Atorvastatin 40 mg at bedtime, clopidogrel 75 mg daily, aspirin 81 mg daily, metoprolol succinate 50 mg at bedtime, tamsulosin 0.4 mg daily, and Lovenox 40 mg subcu daily. STUDIES: Reviewed. Sodium 138, potassium 3.6, chloride 108, bicarbonate 21, BUN 9, creatinine 0.75, glucose 128. White blood cells 9.4, hemoglobin 10.6, platelets 453. INR 1.18. AST 49, ALT 62, alkaline phosphatase 129. ASSESSMENT: A 68-year-old man with peripheral arterial disease, left foot wound, hypertension, diabetes, left leg cellulitis and osteomyelitis. RECOMMENDATIONS: 1. Continue current cardiovascular medications. 2. Outpatient followup for staged intervention to the right lower extremity. 3. Continue rest of cardiovascular medications. MD SquiresV/MODL /[id number]
--- NOTE | 2019-05-19 12:21 | Progress Note ---
DATE: 05/19/2019 SUBJECTIVE: The patient is seen at bedside, accompanied by nurse, doing better. Denying any history of fever, chills, nausea, or vomiting. OBJECTIVE: VITAL SIGNS: Afebrile, pulse rate 60, respirations 17, blood pressure 112/60, and O2 saturation 97%. EXTREMITIES: Has an ulceration 2 x 4.5 cm in diameter, plantar aspect left foot. Decreased cellulitis, still some drainage, but negative foul smell, tracking down to bone. LABORATORY DATA: Show white blood cell count of 9.4, hemoglobin 10.6, and platelet count of 453. Blood glucose of 172. ASSESSMENT: Possible osteomyelitis with a grade 4 ulcer, healing slowly with peripheral arterial disease and diabetic neuropathy. PLAN: We will continue IV antibiotics such as cefazolin. We will continue local wound care. We will change from Bactroban to Santyl collagenase followed by diluted wet-to-dry. Continue to monitor. If the patient improves tomorrow, may be going home tomorrow. LEOLA Wan/ALEXIS /[id number]
[2019-05-19] MEDS: COLLAGENASE 5 GM TUBE TOP SCH ×2 (13:05→21:49)
--- NOTE | 2019-05-19 13:34 | NUR ---
WOUND CARE CONSULT FOR 67 YO FEMALE HX OF_JOJO CARLOS 18 ON CONSERVATIVE PUP STATUS AND INTERVENTIONS AND ALTERNATING PRESSURE MATTRESS LABS: WBC-9.84 HGB_7.8 GLUCOSE-106 SKIN ASSESSMENT COMPLETE PATIENT PRESENTS WITH LEFT KNEE FULL THICKNESS WOUND R/T HARDWARE REJECTION X3 YEARS MEASURES 4CMX3.5CMX 3CM UNDERMINING @8 TO 10 OCLOCK 2CM RECOMMENDATIONS: NURSING TO CONTINUE TO MAINTAIN CONSERVATIVE PUP STATUS AND INTERVENTIONS AND ALTERNATING PRESSURE MATTRESS NURSING TO CONTINUE TO ASSIST PATIENT OUT OF BED FOR MEALS AND MUCH TOLERATED NURSING TO CONTINUE TO ASSIST PATIENT NEEDED WITH MEALS AND NUTRITIONAL SUPPLEMENTS TO ENSURE PROPER REQUIREMENTS FOR HEALING NURSING TO CONTINUE TO OFFLOAD FEET AND HEELS NEEDED WITH PILLOW SUSPENSION WHEN IN BED NURSING TO CLEAN LEFT KNEE WOUND WITH NORMAL SALINE DAILY AND LIGHTLY PACK WITH [employer] COVER WITH 4X4 AND ABD PAD AND WRAP WITH KERLIX Addendum: 05/19/19 at 1345 by Jose Huitron RN Amended: Links added.
[2019-05-19] MEDS ORDERED: ONDANSETRON HCL 4 MG ORAL DISINTEGRATING TAB PO PRN (15:00)
[2019-05-19] MEDS: ENOXAPARIN SOD INJ 40 MG/0.4 ML SYR SC SCH (16:28)
[2019-05-19] MEDS: TAMSULOSIN HCL 0.4 MG CAP PO SCH (16:28)
[2019-05-19] MEDS: ACETAMINOPHEN 325 MG TAB PO PRN (19:27)
--- NOTE | 2019-05-19 19:27 | NUR ---
PATIENT IN STABLE CONDITION WITH NO S/S OF RESPIRATORY DISTRESS. PAIN MEDICATION GIVEN TO THE PATIENT FOR LEFT FOOT PAIN 05/25. PRESENT IN ROOM. CALL LIGHT IS WITHIN REACH, PATIENT INSTRUCTED TO CALL FOR ASSISTANCE NEEDED. BEDSIDE SHIFT REPORT GIVEN TO ONCOMING NURSE.
[2019-05-19] MEDS: METOPROLOL SUCCINATE 50 MG TAB XL PO SCH (21:48)
[2019-05-19] MEDS: LATANOPROST(OPTH) 2.5 ML BTL OP SCH (21:48)
[2019-05-19] MEDS: INSULIN GLARGINE 100 UNITS/ML VIAL SQ SCH (21:49)
[2019-05-20] VITALS (8 sets, daily range): BP systolic 98–142; BP diastolic 60–72
[2019-05-20] MEDS: CEFAZOLIN SOD 1 GM/NS 50ML 50 ML IV SCH ×3 (06:00→22:00)
--- NOTE | 2019-05-20 07:20 | NUR ---
PATIENT IS AWAKE AND IN STABLE CONDITION WITH NO S/S OF RESPIRATORY DISTRESS. PATIENT DENIES PAIN; DRESSING TO LEFT FOOT IS CLEAN AND INTACT.. CALL LIGHT IS WITHIN REACH-PATIENT INSTRUCTED TO CALL FOR ASSISTANCE NEEDED.
[2019-05-20] MEDS: INSULIN LISPRO 100 UNIT/1 ML 3ML VIAL SQ SCH ×4 (07:30→22:00)
[2019-05-20] MEDS: TIMOLOL MALEATE 0.25% OPTHLAMIC DROPS 5 ML OP SCH ×2 (08:02→16:32)
[2019-05-20] MEDS: SENNOSIDES 8.6 MG TAB PO SCH ×2 (08:02→16:32)
[2019-05-20] MEDS: ATORVASTATIN 40 MG TAB PO SCH (08:02)
[2019-05-20] MEDS: ASPIRIN 81 MG CHEW TAB PO SCH ×2 (08:03)
[2019-05-20] MEDS: CLOPIDOGREL BISULFATE 75 MG TAB PO SCH (08:03)
[2019-05-20] MEDS: COLLAGENASE 5 GM TUBE TOP SCH ×2 (08:50→22:00)
--- NOTE | 2019-05-20 14:43 | Progress Note ---
DATE: 05/20/2019 Cardiology Progress Note SUBJECTIVE: Denies chest pain or shortness of breath. Left foot pain well controlled. OBJECTIVE: VITAL SIGNS: Temperature 97.5, heart rate is 59, blood pressure 108/66, respiratory rate 19, and O2 saturation 95%. BMI 28.3. GENERAL: In no acute distress. Alert. NECK: No JVD. CHEST: Clear to auscultation. CARDIOVASCULAR: Regular rate and rhythm. Normal S1 and S2. No S3 or S4. ABDOMEN: Soft. Bowel sounds positive. EXTREMITIES: No edema. Left foot wound covered with dressings. CARDIOVASCULAR MEDICATIONS: Reviewed. Atorvastatin 40 mg at bedtime, aspirin 81 mg daily, metoprolol succinate 50 mg at bedtime, hydralazine 10 mg q.3 hours, Lovenox 40 mg subcutaneous daily, timolol b.i.d., tamsulosin 0.4 mg daily, and clopidogrel 75 mg daily. STUDIES: Reviewed. Creatinine 0.7. Hemoglobin 10.6 and platelets 453. ASSESSMENT AND PLAN: A 68-year-old man with peripheral arterial disease, hypertension, diabetes, dyslipidemia, left leg cellulitis, osteomyelitis, and anemia. RECOMMEND: Continue current cardiovascular medications. Outpatient followup for popliteal revascularization after completion of antibiotic and wound care, left foot wound. MD DARCI Alvarez/ALEXIS /[id number]
--- NOTE | 2019-05-20 15:18 | Progress Note ---
DATE: 05/20/2019 SUBJECTIVE: The patient is seen at bedside, accompanied by spouse. Still having some discomfort to the left lower extremity. Denying history of fever, chills, nausea, or vomiting. OBJECTIVE: VITAL SIGNS: Afebrile, pulse rate 59, respiration 19, blood pressure 108/66, O2 saturation 95%. EXTREMITIES: Ulceration to the left lower extremity looking a little bit better. Still some necrosis noted down to bone. Minimal to no foul smell. Ulcer 2 x 4 cm in diameter with some liquified necrotic tissue. Pedal pulses diminished. Skin temperature is getting warm to touch. CFT to all toes less than 4 seconds. Skin color getting back to normal. ASSESSMENT: Grade 4 ulcer, osteomyelitis left foot, diabetic neuropathy with peripheral arterial disease. PLAN: We will continue IV antibiotics. Ulceration will once again be debrided tomorrow morning. We will continue IV antibiotics and local wound care with Santyl followed by diluted wet-to-dry Betadine and offloading. LEOLA Wan/ALEXIS /[id number]
--- NOTE | 2019-05-20 16:07 | NUR ---
Nutrition Screen Note RD Recommendation for Physician: - Continue current 1800 ADA diet Plan of Care: RD following, monitoring for tolerance and adequacy Nutrition reason for involvement: LOS Primary Diagnose(s): cellulitis of L foot, osteomyelitis PMH: DM2, HTN, dyslipidemia, PAD, L foot wound with revascularization Ht: 64 in Wt: 165 lb BMI: 28.3 kg/m2 IBW: [address] Assessment: (05/19) 68 YOM admitted for L foot wound, seen today for LOS. Pt is Citizen [place] speaking only, daughter at bedside provided translation. 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 Pt denies any wt loss. Pt denies any N/V/C/D, LBM 05/18. Pt reports that he does not follow any diet restrictions at home, DM2 diet education materials in [place] provided to pt and family. No questions or concerns at time of visit. Chart reviewed. Labs and meds reviewed. Will continue to monitor. Current Diet: 1800 ADA Malnutrition Evaluation (05/20/19) The patient does not meet criteria for a specified degree of malnutrition at this time. Will re-evaluate at follow-up as appropriate. Diet Education Needs Assessment: Diet education indicated, pt receptive. Learner(s): pt, pt's family members Barriers: pt and spouse Citizen [place] speaking only Cultural/Language Modifications: materials provided in [place] Readiness: ready Method: handouts, discussion Topics: DM2 nutrition therapy Understanding/Compliance: fair/poor, no prior diet education Diet tolerance: tolerating po Nutrition Care Level: Low Signed: Елена Costello RD, LD, [facility]
[2019-05-20] MEDS: ENOXAPARIN SOD INJ 40 MG/0.4 ML SYR SC SCH (16:32)
[2019-05-20] MEDS: TAMSULOSIN HCL 0.4 MG CAP PO SCH (16:32)
--- NOTE | 2019-05-20 19:33 | NUR ---
PATIENT IN STABLE CONDITION WITH NO S/S OF RESPIRATORY DISTRESS. NO PAIN VOICED. DRESSING TO LEFT FOOT IS INTACT. FAMILY MEMBERS PRESENT IN ROOM. CALL LIGHT IS WITHIN REACH, PATIENT INSTRUCTED TO CALL FOR ASSISTANCE NEEDED. BEDSIDE SHIFT REPORT GIVEN TO ONCOMING NURSE.
[2019-05-20] MEDS: METOPROLOL SUCCINATE 50 MG TAB XL PO SCH (22:00)
[2019-05-20] MEDS: INSULIN GLARGINE 100 UNITS/ML VIAL SQ SCH (22:00)
--- NOTE | 2019-05-20 22:00 | NUR ---
DRESSING CHANGE TO LEFT FOOT PER MD ORDER. PATIENT TOLERATED WELL
[2019-05-20] MEDS: LATANOPROST(OPTH) 2.5 ML BTL OP SCH (22:10)
[2019-05-21] VITALS (8 sets, daily range): BP systolic 104–172; BP diastolic 61–74
[2019-05-21] MEDS: CEFAZOLIN SOD 1 GM/NS 50ML 50 ML IV SCH ×3 (05:42→21:59)
--- NOTE | 2019-05-21 07:00 | NUR ---
BEDSIDE SHIFT REPORT RECEIVED FROM THE GIG TENDER RN. EDUCATED PT ABOUT FALL PRECAUTIONS. PT VERBALIZED UNDERSTANDING. CALL LIGHT WITH IN EASY REACH. INSTRUCTED PT TO USE CALL LIGHT FOR ALL THE NEEDS. FAMILY MEMBER AT BEDSIDE. BED IS LOW AND LOCKED. SIDE RAILS X2. BED ALARM IS ON. PT DENIES NEEDS AT THIS TIME.
[2019-05-21] MEDS: INSULIN LISPRO 100 UNIT/1 ML 3ML VIAL SQ SCH ×4 (08:30→21:55)
--- NOTE | 2019-05-21 08:30 | NUR ---
DR. LAWRENCE AT BEDSIDE. I&D AT BEDSIDE. DRESSING CHANGE COMPLETED.
[2019-05-21] MEDS: ASPIRIN 81 MG CHEW TAB PO SCH ×2 (09:00→09:39)
--- NOTE | 2019-05-21 09:30 | NUR ---
PAGED PHARMACY REGARDING ASPIRIN.
[2019-05-21] MEDS: TIMOLOL MALEATE 0.25% OPTHLAMIC DROPS 5 ML OP SCH ×2 (09:37→17:53)
[2019-05-21] MEDS: SENNOSIDES 8.6 MG TAB PO SCH ×2 (09:38→17:53)
[2019-05-21] MEDS: ATORVASTATIN 40 MG TAB PO SCH (09:39)
[2019-05-21] MEDS: CLOPIDOGREL BISULFATE 75 MG TAB PO SCH (09:40)
[2019-05-21] MEDS: COLLAGENASE 5 GM TUBE TOP SCH ×2 (09:40→21:00)
--- NOTE | 2019-05-21 10:38 | NUR ---
Message left for Dr. Solano regarding DC plan. Informed him bedside debridement was done today. PT was recommending inpatient rehab. Awaiting response for disposition. LAMONT Cortes was also informed to place call to .
--- NOTE | 2019-05-21 15:22 | Progress Note ---
DATE: 05/21/2019 SUBJECTIVE: The patient is seen at bedside, getting somewhat better. Denies any history of fever, chills, nausea, or vomiting. OBJECTIVE: VITAL SIGNS: Afebrile, pulse rate 59, respirations 20, blood pressure 104/61, O2 saturation 96%. EXTREMITIES: Ulceration to the left lower extremity continues to improve. Some necrosis noted down to bone and tendon. Negative foul smell, measuring 2 x 4.5 cm in diameter. ASSESSMENT: Necrosis of liquified tissue down to bone with osteomyelitis, diabetic neuropathy, and peripheral arterial disease. PLAN: Sharp excisional debridement of the ulcer was performed down to bone, tendon and muscle. Devitalized liquefied tissue was sharply excised via the use of a sterile 10 blade until good viable bleeding tissue was achieved. Sterile dressing was applied with Santyl followed by diluted wet-to-dry Betadine. We will continue IV antibiotics. Continue local wound care to see the foot demarcate before any definitive procedure is done. We will try to hold the patient till Saturday or Saturday before he is discharged or definitive procedure is done. LEOLA Wan/ALEXIS /[id number]
--- NOTE | 2019-05-21 16:58 | Progress Note ---
DATE: 05/21/2019 Cardiology Progress Note SUBJECTIVE: Denies any chest pain or shortness of breath. OBJECTIVE: VITAL SIGNS: Temperature 97.7, heart rate 52, blood pressure 148/73, respiratory rate 20, O2 saturation 100%. GENERAL: In no acute distress. Alert. NECK: No JVD. CHEST: Clear to auscultation. CARDIOVASCULAR: Regular rate and rhythm. Normal S1, S2. ABDOMEN: Soft. Bowel sounds positive. EXTREMITIES: No edema. Left foot wound covered with dressings. CARDIOVASCULAR MEDICATIONS: Reviewed. Metoprolol succinate 50 mg every night at bedtime, Lovenox 40 mg subcu ,daily and clopidogrel 75 mg daily. STUDIES: Reviewed. Creatinine 0.7, glucose 128. White blood cells 9.4, hemoglobin 10.6, platelets 453. INR 1.1. AST 49, ALT 62. ASSESSMENT AND PLAN: A 68-year-old man with peripheral arterial disease, left foot cellulitis and osteomyelitis, diabetes mellitus, hypertension, dyslipidemia, anemia. RECOMMEND: 1. Continue current cardiovascular medications. 2. Outpatient followup for staged right lower extremity revascularization. Colton Soares MD AFKatlyn/ALEXIS /[id number]
[2019-05-21] MEDS: TAMSULOSIN HCL 0.4 MG CAP PO SCH (17:53)
[2019-05-21] MEDS: ENOXAPARIN SOD INJ 40 MG/0.4 ML SYR SC SCH (17:53)
--- NOTE | 2019-05-21 18:35 | NUR ---
RFA 20 G IV REMOVED DUE TO LEAKING. TIP INTACT. DRESSING APPLIED. NEW IV LFA 22 G IV STARTED. PT DENIED FURTHER NEEDS
--- NOTE | 2019-05-21 19:00 | NUR ---
BEDSIDE SHIFT REPORT GIVEN TO THE TOW FEEDER RN. PT DENIED FURTHER NEEDS.
[2019-05-21] MEDS: INSULIN GLARGINE 100 UNITS/ML VIAL SQ SCH (21:55)
[2019-05-21] MEDS: METOPROLOL SUCCINATE 50 MG TAB XL PO SCH (21:58)
[2019-05-21] MEDS: LATANOPROST(OPTH) 2.5 ML BTL OP SCH (21:58)
[2019-05-22] VITALS (8 sets, daily range): BP systolic 107–162; BP diastolic 64–71
[2019-05-22] MEDS ORDERED: SODIUM CHLORIDE 0.9% 250ML 250 ML ONE (00:17)
[2019-05-22] MEDS: CEFAZOLIN SOD 1 GM/NS 50ML 50 ML IV SCH ×3 (05:26→22:33)
[2019-05-22 05:27] LABS: BASOPHILS % 0.5 % (0.0-1.0); EOSINOPHILS # (AUTO) 0.5 (0.0-0.4); EOSINOPHILS % 5.6 % (0.0-6.0); HEMATOCRIT 33.5 % (38.2-49.6); HEMOGLOBIN 10.5 g/dL (14.0-18.0); LYMPHOCYTES # (AUTO) 2.1 (1.0-3.2); LYMPHOCYTES % 24.6 % (18.0-39.1); MEAN CORPUSCULAR HEMOGLOBIN 25.2 pg (28-32); MEAN CORPUSCULAR HGB CONC 31.3 g/dL (31-35); MEAN CORPUSCULAR VOLUME 80.3 fL (81-99); MONOCYTES # (AUTO) 0.7 (0.2-0.8); MONOCYTES % 8.5 % (4.4-11.3); NEUTROPHILS # (AUTO) 5.2 (2.1-6.9); NEUTROPHILS % 60.4 % (38.7-80.0); PLATELET COUNT 422 x10e3/uL (140-360); RED BLOOD COUNT 4.17 x10e6/uL (4.3-5.7); RED CELL DISTRIBUTION WIDTH 15.9 % (11.7-14.4)
--- NOTE | 2019-05-22 07:00 | NUR ---
BEDSIDE SHIFT REPORT RECEIVED FROM THE WOOL CLEANER RN. EDUCATED PT ABOUT FALL PRECAUTIONS. PT VERBALIZED UNDERSTANDING. CALL LIGHT WITH IN EASY REACH. INSTRUCTED PT TO USE CALL LIGHT FOR ALL THE NEEDS. BED IS LOW AND LOCKED. SIDE RAILS X2. FAMILY MEMBER AT BEDSIDE. PT DENIES NEEDS AT THIS TIME.
[2019-05-22] MEDS: INSULIN LISPRO 100 UNIT/1 ML 3ML VIAL SQ SCH ×4 (08:25→20:06)
[2019-05-22] MEDS: TIMOLOL MALEATE 0.25% OPTHLAMIC DROPS 5 ML OP SCH ×2 (08:56→17:17)
[2019-05-22] MEDS: CLOPIDOGREL BISULFATE 75 MG TAB PO SCH (08:57)
[2019-05-22] MEDS: ATORVASTATIN 40 MG TAB PO SCH (08:57)
[2019-05-22] MEDS: ASPIRIN 81 MG CHEW TAB PO SCH (08:57)
[2019-05-22] MEDS: SENNOSIDES 8.6 MG TAB PO SCH ×2 (08:57→17:17)
[2019-05-22] MEDS: COLLAGENASE 5 GM TUBE TOP SCH ×2 (09:30→22:33)
--- NOTE | 2019-05-22 13:48 | Progress Note ---
DATE: 05/22/2019 Cardiology Progress Note SUBJECTIVE: Denies any chest pain or shortness of breath. OBJECTIVE: VITAL SIGNS: Temperature 96.3, heart rate 59, blood pressure 107/64, respiratory rate 19, and O2 saturation 94%. GENERAL: No acute distress, alert. NECK: No JVD. CHEST: Clear to auscultation. CARDIOVASCULAR: Regular rate and rhythm. Normal S1 and S2. ABDOMEN: Soft. Bowel sounds positive. EXTREMITIES: No edema. Left foot wound covered with dressings. CARDIOVASCULAR MEDICATIONS: Reviewed. Lovenox 40 mg subcu daily, metoprolol succinate 50 mg at bedtime, clopidogrel 75 mg daily, hydralazine 10 mg q.3 hours, tamsulosin 0.4 mg daily, atorvastatin 40 mg at bedtime. LABORATORY DATA: Creatinine 0.7, hemoglobin 10.5, and platelets 422. ASSESSMENT AND PLAN: 1. A 68-year-old man with peripheral arterial disease, status post left foot cellulitis and osteomyelitis, undergoing wound care and antibiotics. Residual right popliteal severe stenosis, pending outpatient revascularization, which has been advised. 2. Continue current cardiovascular medications for now. Okay to discharge from a cardiovascular standpoint with outpatient followup in 2 weeks post discharge. MD DARCI Alvarez/ALEXIS /[id number]
--- NOTE | 2019-05-22 16:09 | Progress Note ---
DATE: 05/22/2019 SUBJECTIVE: The patient at bedside, accompanied by spouse, doing significantly better. OBJECTIVE: VITAL SIGNS: Afebrile, pulse rate 59, respirations 19, blood pressure 107/64, and O2 saturation 94%. LABORATORY DATA: Show white blood cell count of 8.5. Ulceration to the left lower extremity getting better, some granulation tissue noted, still some edema, positive for cellulitis, but much better. There are ulcerations tracking down to bone and tendon. ASSESSMENT: Grade 4 ulcer, osteomyelitis with cellulitis. PLAN: We will continue IV antibiotics, local wound care. The patient continues to improve. Discharge day tentatively will be on Saturday. LEOLA Wan/ALEXIS /[id number]
[2019-05-22] MEDS: ENOXAPARIN SOD INJ 40 MG/0.4 ML SYR SC SCH (17:17)
[2019-05-22] MEDS: TAMSULOSIN HCL 0.4 MG CAP PO SCH (17:17)
--- NOTE | 2019-05-22 19:00 | NUR ---
BEDSIDE SHIFT REPORT GIVEN TO THE MARITIME PILOT RN. PT DENIED FURTHER NEEDS.
--- NOTE | 2019-05-22 19:22 | NUR ---
Received bedside report from day nurse. Patient awake and resting in bed, no s/s of distress at this time. All safety measures in place. Family at bedside. Will continue to monitor.
[2019-05-22] MEDS: LATANOPROST(OPTH) 2.5 ML BTL OP SCH (20:06)
[2019-05-22] MEDS: INSULIN GLARGINE 100 UNITS/ML VIAL SQ SCH (20:06)
[2019-05-22] MEDS: METOPROLOL SUCCINATE 50 MG TAB XL PO SCH (20:06)
[2019-05-23] VITALS (8 sets, daily range): BP systolic 126–163; BP diastolic 63–74
[2019-05-23] MEDS: CEFAZOLIN SOD 1 GM/NS 50ML 50 ML IV SCH ×3 (05:59→22:30)
--- NOTE | 2019-05-23 07:00 | NUR ---
Bedside report given to day nurse. Patient awake and resting in bed, no s/s of distress at this time. All safety measures in place. Family at bedside.
--- NOTE | 2019-05-23 07:00 | NUR ---
RECEIVED PATIENT AWAKE RESTING IN BED. NO S/S OF DISTRESS. BED LOW, WHEELS LOCKED, SIDE RAILS X2. CALL LIGHT IN REACH WILL CONTINUE TO MONITOR PATIENT.
[2019-05-23] MEDS: INSULIN LISPRO 100 UNIT/1 ML 3ML VIAL SQ SCH ×4 (07:30→20:25)
[2019-05-23] MEDS: CLOPIDOGREL BISULFATE 75 MG TAB PO SCH (08:30)
[2019-05-23] MEDS: SENNOSIDES 8.6 MG TAB PO SCH ×2 (08:30→17:04)
[2019-05-23] MEDS: ASPIRIN 81 MG CHEW TAB PO SCH (08:30)
[2019-05-23] MEDS: TIMOLOL MALEATE 0.25% OPTHLAMIC DROPS 5 ML OP SCH ×2 (08:30→17:04)
[2019-05-23] MEDS: COLLAGENASE 5 GM TUBE TOP SCH ×2 (08:30→21:00)
[2019-05-23] MEDS: ATORVASTATIN 40 MG TAB PO SCH (08:30)
--- NOTE | 2019-05-23 14:47 | Progress Note ---
DATE: SUBJECTIVE: Mr. Wilkins is doing better. There are no new complaints. The patient who is status post debridement by Dr. Merrill. He has no complaints. His wound culture is showing Staphylococcus aureus, which was MSSA and the patient is currently on cefazolin. His foot MRI showed soft tissue ulceration with phlegmon with osteomyelitis of the phalanx, metatarsal head. The patient is status post vascular workup, status post debridement at the bedside. PHYSICAL EXAMINATION: GENERAL: He is currently alert, oriented, does not seem to be in acute distress. VITAL SIGNS: Stable. Currently afebrile. HEENT: Not icteric. NECK: Supple. CHEST: Clear. HEART: S1, S2. No murmurs. ABDOMEN: Soft. IMPRESSION: 1. This is day #9 of antibiotic intravenous, can probably discharge him home on Saturday with oral Keflex for 4 weeks and close observation. We will follow. 2. Peripheral vascular disease. 3. Other medical problems as above. MD MIMI Delgado/MODL /[id number]
[2019-05-23] MEDS: TAMSULOSIN HCL 0.4 MG CAP PO SCH (17:04)
--- NOTE | 2019-05-23 18:08 | Progress Note ---
DATE: 05/23/2019 Cardiology Progress Note SUBJECTIVE: No complaints. OBJECTIVE: VITAL SIGNS: Temperature 96.6, heart rate 60, blood pressure 126/69, respiratory rate 16, O2 saturation 97%. GENERAL: In no acute distress. Alert. NECK: No JVD. CHEST: Clear to auscultation. CARDIOVASCULAR: Regular rate and rhythm. Normal S1, S2. No S3 or S4. ABDOMEN: Soft. Bowel sounds positive. EXTREMITIES: No edema. Left foot wound covered with dressings. CARDIOVASCULAR MEDICATIONS: Reviewed. Lovenox, metoprolol, clopidogrel, aspirin, atorvastatin. STUDIES: Reviewed. Creatinine 0.7, hemoglobin 10.5, platelets 422. INR 1.1. ASSESSMENT AND PLAN: A 68-year-old man with peripheral arterial disease, left foot cellulitis and osteomyelitis, hypertension, diabetes, dyslipidemia anemia. RECOMMENDATIONS: 1. Continue current cardiovascular medications. 2. Outpatient followup in 2 to 4 weeks post discharge. Consider staged left popliteal revascularization. MD DARCI Alvarez/KENNETHL /[id number]
[2019-05-23] MEDS: METOPROLOL SUCCINATE 50 MG TAB XL PO SCH (20:25)
[2019-05-23] MEDS: INSULIN GLARGINE 100 UNITS/ML VIAL SQ SCH (20:25)
[2019-05-23] MEDS: LATANOPROST(OPTH) 2.5 ML BTL OP SCH (20:25)
--- NOTE | 2019-05-23 20:25 | NUR ---
PATIENT IS RESTING IN BED IN STABLE CONDITION AOX3, NO SIGNS OF DISTRESS NOTED. IS AT BEDSIDE AND PATIENT VOICES NO PAIN AT THIS TIME. DRESSING ON LEFT FOOT IS DRY AND INTACT NO DRAINAGE NOTED. BED IS AT LOW POSITION, SIDE RAILS ARE UP, CALL LIGHT IS WITHIN REACH, WILL CONTINUE TO MONITOR.
--- NOTE | 2019-05-23 20:49 | Progress Note ---
DATE: 05/23/2019 SUBJECTIVE: The patient is seen at bedside, doing better. He is denying any history of fever or chills. OBJECTIVE: VITAL SIGNS: Afebrile, pulse rate 60, respirations 16, blood pressure 126/69, and O2 saturation 97%. EXTREMITIES: Ulceration to the left lower extremity improving slowly. Some granulation tissue noted, bone and tendon exposed, 2 x 4.5 cm in diameter. Still some edema and cellulitis with no drainage. The patient is positive for Staph aureus, [id number]-[id number]. ASSESSMENT: Grade 4 ulcer, osteomyelitis, peripheral arterial disease, diabetic neuropathy, healing slowly. PLAN: Continue Santyl followed by diluted wet-to-dry Betadine. Continue IV antibiotics. We will continue to follow. LEOLA Wan/ALEXIS /[id number]
[2019-05-24] VITALS (8 sets, daily range): BP systolic 113–151; BP diastolic 55–70
[2019-05-24] MEDS: CEFAZOLIN SOD 1 GM/NS 50ML 50 ML IV SCH ×3 (06:11→22:00)
--- NOTE | 2019-05-24 07:00 | NUR ---
RECEIVED PATIENT RESTING IN BED NO S/S OF DISTRESS. BED LOW, WHEELS LOCKED, SIDE RAILS X2. CALL LIGHT IN REACH WILL CONTINUE TO MONITOR PATIENT.
[2019-05-24] MEDS: INSULIN LISPRO 100 UNIT/1 ML 3ML VIAL SQ SCH ×4 (07:30→21:00)
[2019-05-24] MEDS: COLLAGENASE 5 GM TUBE TOP SCH ×2 (08:15→21:00)
[2019-05-24] MEDS: CLOPIDOGREL BISULFATE 75 MG TAB PO SCH (08:15)
[2019-05-24] MEDS: TIMOLOL MALEATE 0.25% OPTHLAMIC DROPS 5 ML OP SCH ×2 (08:15→17:03)
[2019-05-24] MEDS: ASPIRIN 81 MG CHEW TAB PO SCH (08:15)
[2019-05-24] MEDS: ATORVASTATIN 40 MG TAB PO SCH (08:15)
[2019-05-24] MEDS: SENNOSIDES 8.6 MG TAB PO SCH ×2 (08:15→17:03)
[2019-05-24] MEDS: TAMSULOSIN HCL 0.4 MG CAP PO SCH (17:03)
--- NOTE | 2019-05-24 19:26 | NUR ---
Patient received lying in bed. Family at bedside. AAO x 3. Patient had no complaints of pain. Respirations even and non-labored. Fall precautions implemented. Patient instructed to call for assistance when needed. Call light within reach.
--- NOTE | 2019-05-24 19:57 | Progress Note ---
DATE: Cardiology Progress Note SUBJECTIVE: Denies chest pain or shortness of breath. OBJECTIVE: VITAL SIGNS: Temperature 97 degrees, heart rate 60, blood pressure 123/58, respiratory rate 18, saturation 97%. BMI 28. GENERAL: In no acute distress. Alert. NECK: No JVD. CHEST: Clear to auscultation. CARDIOVASCULAR: Regular rate and rhythm. Normal S1 and S2. ABDOMEN: Soft. Bowel sounds positive. EXTREMITIES: No edema. Left foot wound looks deep with granulation tissue and some fibrinous material covering. CARDIOVASCULAR MEDICATIONS: Reviewed. Clopidogrel 75 mg daily, aspirin 81 mg daily, atorvastatin 40 mg at bedtime, and metoprolol succinate 50 mg at bedtime. STUDIES: Creatinine is 0.75, potassium 3.6, bicarbonate 21, and glucose 128. White blood cells 8.5, hemoglobin 10.5, and platelets 422. ASSESSMENT AND PLAN: A 68-year-old man presents with peripheral arterial disease, left foot wound with osteomyelitis and cellulitis, hypertension, diabetes, and dyslipidemia. RECOMMEND: 1. Continue current cardiovascular medications. 2. Wound care. 3. Outpatient consideration of right lower extremity [id number] revascularization at a later date. MD DARCI Alvarez/ALEXIS /[id number]
--- NOTE | 2019-05-24 20:32 | Progress Note ---
DATE: 05/24/2019 SUBJECTIVE: The patient is seen at bedside, accompanied by spouse, doing better. Denies any history of fever, chills, nausea, or vomiting. OBJECTIVE: VITAL SIGNS: Afebrile, pulse rate 60, respirations 18, blood pressure 123/58, and O2 saturation 97%. EXTREMITIES: Ulceration shows some necrosis with some liquified tissue, but significantly better. There is some granulation tissue noted. Negative foul smell. Bone and tendon exposed, 2 x 3.5 to 4 cm in diameter. A lot less pain upon palpating the foot. There is still positive edema when compared to contralateral side. ASSESSMENT: Osteomyelitis with a grade 3/4 ulceration left foot with peripheral arterial disease and diabetic neuropathy. PLAN: We will continue IV antibiotics. Continue local wound care. We will continue to follow. LEOLA Wan/ALEXIS /[id number]
[2019-05-24] MEDS: INSULIN GLARGINE 100 UNITS/ML VIAL SQ SCH (21:00)
[2019-05-24] MEDS: METOPROLOL SUCCINATE 50 MG TAB XL PO SCH (21:00)
[2019-05-24] MEDS: LATANOPROST(OPTH) 2.5 ML BTL OP SCH (21:20)
[2019-05-25] VITALS: BP 167/77
[2019-05-25 04:00] VITALS: BP 122/60
[2019-05-25] MEDS: CEFAZOLIN SOD 1 GM/NS 50ML 50 ML IV SCH ×2 (06:10→16:29)
--- NOTE | 2019-05-25 06:45 | NUR ---
Patient resting comfortably. Bed- side report given to oncoming nurse.
--- NOTE | 2019-05-25 06:53 | NUR ---
Patient lying in bed with eyes open. Respiration even and unlabored without SOB. Call light in reach.
[2019-05-25] MEDS: INSULIN LISPRO 100 UNIT/1 ML 3ML VIAL SQ SCH ×2 (07:30→11:30)
[2019-05-25 07:52] VITALS: BP 136/68
[2019-05-25] MEDS: ATORVASTATIN 40 MG TAB PO SCH (08:45)
[2019-05-25] MEDS: ASPIRIN 81 MG CHEW TAB PO SCH (08:45)
[2019-05-25] MEDS: CLOPIDOGREL BISULFATE 75 MG TAB PO SCH (08:45)
[2019-05-25] MEDS: SENNOSIDES 8.6 MG TAB PO SCH ×2 (08:46→16:30)
[2019-05-25] MEDS: COLLAGENASE 5 GM TUBE TOP SCH (08:48)
[2019-05-25] MEDS: TIMOLOL MALEATE 0.25% OPTHLAMIC DROPS 5 ML OP SCH ×2 (08:51→18:07)
[2019-05-25 09:13] VITALS: BP 136/68
--- NOTE | 2019-05-25 11:13 | NUR ---
SPOKE WITH PT AND IN ROOM WITH TRANSLATION MACHINE, BRITTANY Vizcarra [id number]. EXPLAINED THE PENITENTIARY ORDER AND DISCUSSED WITH THEM THE NEED TO GO TO A FACILITY. PT AND HIS LIVE IN [place], THEY WERE VISITING THEIR DAUGHTER IN [place]. THEY EXPLAINED TO ME THAT THEY HAVE HOME HEALTH 3 TIMES A WEEK. THEY ASKED THAT I CALL THEIR DAUGHTER RITO [phone]. CALLED HER AND SHE STATES THAT THEY DO HAVE HOME HEALTH WITH [facility] [phone], I EXPLAINED THE NEED FOR SNF TO DAUGHTER AND WHILE ON PHONE THEY CALLED HER, SHE STATES THEY REFUSED THE SNF AND WANT TO GO HOME TO [place] AND RE-INSTATE THE HOME HEALTH. THE ASKED IF WE CAN TRANSFER HIM TO THE HOSPITAL THERE, I EDUCATED THAT THERE IS NO NEED FOR A LATERAL TRANSFER AND THE INSURANCE WILL NOT PAY FOR THE TRANSPORT.
--- NOTE | 2019-05-25 11:30 | Progress Note ---
DATE: 05/25/2019 Cardiology Progress Note SUBJECTIVE: Denies any chest pain or shortness of breath. OBJECTIVE: VITAL SIGNS: Temperature 98.3, heart rate 60, blood pressure 136/68, respiratory rate 16, and O2 saturation 96%. GENERAL: In no acute distress. Alert, active, oriented x3. NECK: No JVD. CHEST: Clear to auscultation. CARDIOVASCULAR: Regular rate and rhythm. Normal S1, S2. ABDOMEN: Soft. Bowel sounds positive. EXTREMITIES: No edema. Abnormal pedal pulses. Left medial forefoot open wound. CARDIOVASCULAR MEDICATIONS: Reviewed. Aspirin 81 mg daily, atorvastatin 40 mg at bedtime, clopidogrel 75 mg daily, and metoprolol succinate 25 mg at bedtime. STUDIES: Reviewed. Creatinine 0.7, hemoglobin 10.5, and platelets 422. AST 49, ALT 62. INR 1.18. ASSESSMENT AND PLAN: A 68-year-old man with diabetes, hypertension, dyslipidemia, peripheral arterial disease, and left foot wound with cellulitis and osteomyelitis. RECOMMENDATIONS: Continue current cardiovascular medications. He will need to continue on prolonged wound care and antibiotics. From a cardiovascular standpoint, okay to discharge with outpatient followup. He will need to follow up for staged revascularization of the right lower extremity popliteal severe stenosis at a later date. MD DARCI Alvarez/ALEXIS /[id number]
[2019-05-25 11:38] VITALS: BP 129/65
--- NOTE | 2019-05-25 12:01 | Progress Note ---
DATE: 05/25/2019 SUBJECTIVE: The patient is seen at bedside, accompanied by spouse, doing better. Decreased discomfort to the left lower extremity. Denying any history of fever, chills, nausea, or vomiting. OBJECTIVE: VITAL SIGNS: Afebrile, pulse rate 67, respirations 18, blood pressure 122/60, and O2 saturation 96%. EXTREMITIES: Ulceration to the left lower extremity improving slowly. Some granulation tissue noted. Still some drainage. Negative foul smell. Decreased edema and cellulitis of the left foot. Pedal pulses diminished. Ulcers 2 x 4 cm in diameter with tracking down to bone and tendon. ASSESSMENT: Peripheral arterial disease, diabetic neuropathy, grade 4 ulcer with possible osteomyelitis, 1st MPJ left. PLAN: We will continue local wound care. Continue IV antibiotics. Okay to be discharged. The patient to follow up within 2 weeks in the office. LEOLA Wan/ALEXIS /[id number]
--- NOTE | 2019-05-25 12:53 | NUR ---
Informed Dr. Solano that pt does not want SNF. Wants to go home with home health. He asked CM to speak with Dr. Merrill. CM spoke with Dr. Merrill and informed him that pt is refusing SNF. Dr. Merrill said he's fine with that if that's what pt wants. States to continue same wound care order with home health and continue on IV abx. Pt to follow up in clinic. CM updated Dr. Solano. Awaiting response. CM also reached out to [facility] regarding outpatient IV abx. States he will find out what IV abx pt needs to be on and let CM know.
--- NOTE | 2019-05-25 13:39 | NUR ---
Spoke to Tawny at [facility]. She verified that pt is currently on service with them. Awaiting Dr. Solano's response for home health order. Will fax once order received.
[2019-05-25] MEDS: TAMSULOSIN HCL 0.4 MG CAP PO SCH (16:29)
[2019-05-25 16:43] VITALS: BP 154/67
--- NOTE | 2019-05-25 16:44 | NUR ---
Dr. Michel left Rx for oral antibiotic on chart. CM spoke to pt and daughter at bedside. Pt wants to return home with home health. Wants to continue service with same company he had previously. Also received order for BSC. Pt fine with using any company that takes his insurance. Choice letter signed for [facility] and [facility]. Signed copy placed in chart. Copy to pt's daughter. [facility] letter delivered and explained. Pt ready to go home. Signed copy placed in chart. Copy to pt's daughter. Home Health order and clinicals faxed to [facility] at [phone] / P [phone]. [facility]SC order faxed to [facility] at [phone]. Collin Black was notified of referral.
--- NOTE | 2019-05-25 18:33 | NUR ---
PIV to left FA discontinued, catheter tip intact, no bleeding noted. Discharge education provided along with discharge packet with home health wound care orders. Family member at bedside. Verbalized understanding. Transported via wheelchair to private vehicle with all personal belongings.
--- NOTE | 2019-05-26 04:39 | Discharge Summary ---
PRIMARY CARE PHYSICIAN: Dr. Andi Veliz. CONSULTANTS: 1. Dr. Colton Soares. 2. Dr. Ministerio Merrill. 3. Dr. Reyna Michel. FINAL DIAGNOSES: 1. Status post left infected diabetic foot toe ulcer, status post multiple debridements done by Dr. Ministerio Merrill. 2. Peripheral arterial vascular disease associated with diabetic neuropathy, associated with grade 4 ulcer with osteomyelitis of the first MPJ of the left foot. It is consistent with infected diabetic foot ulcer. 3. Baseline diabetes type 2, on insulin therapy. SUMMARY: The patient is a 68-year-old male with left foot infection. The patient had multiple workups done including imaging of the left foot. The patient's left foot MRI showed osteomyelitis of the pharynges. Soft tissue ulceration with phlegmon abscess, medial plantar foot with osteomyelitis of the pharynges metatarsal head and the sesamoid of the hallux. The patient has been receiving IV antibiotics. He had the wound culture grew out to be MSSA. The patient's antibiotic is sensitive to the infection. The patient has received IV antibiotics all his hospitalization. His WBC is normal. His blood sugar is uncontrolled with glycohemoglobin A1c of 10. The patient is on insulin. Discussed with the patient regarding insulin therapy and compliance along with diet control as well. The patient has been cleared by Dr. Merrill for going home. Continue with wound care. Oral antibiotic is given by Dr. Michel. The patient is otherwise stable. I did offer for the patient to go to skilled facility in the patient issues. The patient want to go home with home health and wound care at home. For such, the patient will need to follow up with Dr. Merrill closely preferably by this week and also to follow up with Dr. Michel with this week as well. The foot needs to be evaluate within a day or 2 and adjust medication if needed. The patient may need IV antibiotic depending on the results of the home wound care and oral antibiotic per Dr. Michel. Discussed with the patient and family at length. The patient will go home today and follow up as an outpatient. Again, the patient refused going to skilled for continue with wound care and antibiotic treatment. MD MARIBELL Flores/ALEXIS /[id number]
--- NOTE | 2019-05-26 09:16 | NUR ---
GIULIANO called and spoke with aTwny at [facility]. She states they did receive clinicals/order. Nursing will come out to see pt today to resume care.
== END 2019-05-25 18:33 | disposition home health service (06) | DRG 253 ==
LOC: ER 11:39 → ERHOLD 13:35 → MED/SURG2 14:43
PROVIDERS: ADMIT Internal Medicine; ATTEND Internal Medicine
PROC: 047L3DZ Dilation of Left Femoral Artery with Intraluminal Device, Percutaneous Approach (ICD-10-PCS; principal; 2019-05-15)
PROC: 047R3ZZ Dilation of Right Posterior Tibial Artery, Percutaneous Approach (ICD-10-PCS; 2019-05-15)
PROC: 0QBN0ZZ Excision of Right Metatarsal, Open Approach (ICD-10-PCS; 2019-05-15)
PROC: B41D1ZZ Fluoroscopy of Aorta and Bilateral Lower Extremity Arteries using Low Osmolar Contrast (ICD-10-PCS; 2019-05-15)
PROC: B41B1ZZ Fluoroscopy of Other Intra-Abdominal Arteries using Low Osmolar Contrast (ICD-10-PCS; 2019-05-15)
PROC: 0QBN0ZZ Excision of Right Metatarsal, Open Approach (ICD-10-PCS; 2019-05-17)
DX: E11.52 Type 2 diabetes mellitus with diabetic peripheral angiopathy with gangrene (principal); L98.496 Non-pressure chronic ulcer of skin of other sites with bone involvement without evidence of necrosis; I70.269 Atherosclerosis of native arteries of extremities with gangrene, unspecified extremity; M86.8X7 Other osteomyelitis, ankle and foot; E11.69 Type 2 diabetes mellitus with other specified complication; B95.61 Methicillin susceptible Staphylococcus aureus infection as the cause of diseases classified elsewhere; E78.00 Pure hypercholesterolemia, unspecified; D64.9 Anemia, unspecified
CPT/HCPCS: 36247; 36415; 75625; 75716; 80048; 80053; 80202; 82550; 82553; 82948; 83036; 84484; 85025; 85610; 85651; 85730; 86140; 87040; 87071; 87186; 87205; 93925; 96372; 97139; 99152; 99153; C1760; C1769; C1887; J0690; J1650; J1815; J2001; J2250; J2270; J2405; J2543; J3010; J3370; J7030; J7050; Q9967